=== PATIENT | male | born 1990 | race Caucasian/White ===

== ENCOUNTER 2019-08-24 15:48 | Emergency (ER) | payer OTHER ==
[~2019-08-24] VITALS: Ht 167.6 cm; Wt 90.7 kg
[~2019-08-24 15:48] MED LIST: KLONOPIN1 MG PO; LAMICTAL100 MG PO; NOHOMEMEDICATIONS; NORCO 5-325 TA1 EACH PO; PERCOCET 5-3251 EACH PO; TRAZODONE
[2019-08-24] MEDS ORDERED: MOBIC7.5 MG PO (17:19)
[2019-08-24 17:33] VITALS: BP 116/89
== END 2019-08-24 17:33 | disposition home or self-care (01) ==
LOC: ER 15:48
DX: S29.011A Strain of muscle and tendon of front wall of thorax, initial encounter (principal); F17.210 Nicotine dependence, cigarettes, uncomplicated; V98.8XXA Other specified transport accidents, initial encounter; Y93.89 Activity, other specified; Y92.89 Other specified places as the place of occurrence of the external cause; Y99.8 Other external cause status